=== PATIENT | male | born 1935 | race Caucasian/White ===

== ENCOUNTER 2017-05-01 10:58 | Emergency (ER) | payer OTHER, MEDICARE ==
--- NOTE | 2017-05-01 14:24 | EDPHY ---
H & P Stated Complaint: Fell 1 week ago on right side - pain and bruising to R hip, leg and ankle. HPI/ROS: Chief complaint: Right leg pain History of present illness: This is an 81-year-old male who presents to the emergency department for right leg pain. Patient reports one week ago he was stepping through a doorway when he stepped on the elevated door stoop, lost his balance and fell down striking his right leg against the ground. He reports pain in the right hip, right knee and right ankle. It remains persistently sore. It makes it difficult to ambulate but he still able to ambulate. He denies open wounds. He denies abnormal coolness or paresthesias in the leg. No report of trauma to other parts of the body. - Personal History Current Tetanus Diphtheria and Acellular Pertussis (TDAP): Yes Tetanus Vaccine Date: 2007 - Medical/Surgical History Hx Asthma: No Hx Chronic Respiratory Disease: No Hx Diabetes: No Hx Cardiac Disease: Yes Hx Renal Disease: No Hx Cirrhosis: No Hx Alcoholism: No Hx HIV/AIDS: No Hx Splenectomy or Spleen Trauma: No Other PMH: PMH: CT WITH STENTS,HYPERLIPIDEMIA,THYMOMA. PSH: BACK SURG x 2, GB - Social History Smoking Status: Never smoked - Physical Exam Exam: General Appearance: Alert, nontoxic Eyes: PERRLA Respiratory: Lungs clear to auscultation bilaterally Cardiac: Regular rate and rhythm. DP and PT pulses 2+. Capillary refill brisk in all toes of each foot. Gastrointestinal: Soft, nondistended, nontender. Neurological: Alert and oriented. Strength and sensation intact and symmetrical. Sensation intact throughout the right leg. Skin: No lesions consistent with trauma to the right leg. Musculoskeletal: Patient ambulating well on his own. Mild discomfort to palpation of the lateral aspect of the right hip, mild discomfort to the lateral aspect of the right knee and mild discomfort diffusely to the right ankle. Still he is moving these regions well. Constitutional: Initial Vital Signs Temperature (C) 36.4 C 05/01/17 10:59 Heart Rate 64 05/01/17 10:59 Respiratory Rate 16 05/01/17 10:59 Blood Pressure 164/84 H 05/01/17 10:59 O2 Sat (%) 96 05/01/17 10:59 O2 Delivery Mode Room Air Allergies/Adverse Reactions: levofloxacin [From Levaquin] Allergy (Severe, Verified 11/05/14 17:47) tendonitis hydrocodone Allergy (Mild, Verified 11/05/14 17:47) ANXIETY,CONFUSION oxycodone [Oxycodone] Allergy (Mild, Verified 11/05/14 17:47) ANXIETY,CONFUSION ketorolac tromethamine [From Toradol] Allergy (Unknown, Verified 11/05/14 17:47) Hives triazolam [From Halcion] Allergy (Unknown, Verified 11/05/14 17:47) Hives Home Medications: Medication Instructions Recorded Atorvastatin Calcium [Lipitor 80 80 mg PO HS 11/05/14 mg] Clopidogrel Bisulfate [Plavix (*)] 75 mg PO HS 11/05/14 Finasteride [Proscar 5 MG (*)] 5 mg PO DAILY 11/05/14 HYDROmorphone HCL [Dilaudid] 2 mg PO Q4 PRN #30 tab 11/11/14 Ondansetron Odt [Zofran Odt] 4 mg PO Q4PRN PRN #20 tab 11/12/14 Medical Decision Making - Diagnostics Imaging: Discussed imaging studies w/ outbound call center representative Radiologist, I viewed and interpreted images myself ED Course/Re-evaluation: Patient seen under the supervision of my secondary supervising physician Dr. Winnie Martinez. Patient presents to the emergency department a week after falling and injuring his right leg. The leg is neurovascularly intact. He is nontoxic. X-rays of the hip, knee and ankle where he is hurting are negative. Given persistent pain in the right hip a CT scan is pursued to ensure no fracture and is negative. Patient will be discharged home. Home care is discussed. He is referred to Orthopedics for recheck. Return precautions are given. Patient voiced understanding and agreement with plan. Differential Diagnosis: Included but not limited to contusion, sprain or strain, bony fracture Departure - Departure Disposition: Home, Routine, Self-Care Clinical Impression: Contusion Qualifiers: Encounter type: initial encounter Contusion area: hip Laterality: right Qualified Code(s): S70.01XA - Contusion of right hip, initial encounter Condition: Good Instructions: Contusion in Adults (ED) Additional Instructions: Follow-up with orthopedics for continued evaluation and care If symptoms worsen or new symptoms develop return to the emergency room for recheck Referrals: Alex Echols MD [Primary Care Provider] - As per Instructions Laura Menard MD [Medical Doctor] - As per Instructions
[2017-05-01 14:36] VITALS: BP 167/95; PULSE 68; RESP 18; TEMP 99; O2SAT 94
== END 2017-05-01 14:37 | disposition home or self-care (01) ==
DX: S70.01XA Contusion of right hip, initial encounter (principal); I25.2 Old myocardial infarction; Z95.5 Presence of coronary angioplasty implant and graft; W01.198A Fall on same level from slipping, tripping and stumbling with subsequent striking against other object, initial encounter

== ENCOUNTER → 2017-05-07 | Outpatient (CLI) | payer OTHER, MEDICARE | LOC: FIMAGING 08:17 | DX: M46.96 Unspecified inflammatory spondylopathy, lumbar region (principal); M48.062 Spinal stenosis, lumbar region with neurogenic claudication; M51.26 Other intervertebral disc displacement, lumbar region; M51.37 Other intervertebral disc degeneration, lumbosacral region ==

== ENCOUNTER → 2018-03-02 | Outpatient (CLI) | payer OTHER, MEDICARE | LOC: BHFA 14:45 | PROVIDERS: ATTEND Nurse Practitioner Adult Health | DX: I71.9 Aortic aneurysm of unspecified site, without rupture (principal); I25.10 Atherosclerotic heart disease of native coronary artery without angina pectoris; R07.2 Precordial pain ==

== ENCOUNTER → 2018-03-06 | Outpatient (CLI) | payer OTHER, MEDICARE | LOC: BHFA 09:30 | PROVIDERS: ATTEND Internal Medicine Cardiovascular Disease | DX: R07.9 Chest pain, unspecified (principal); I25.10 Atherosclerotic heart disease of native coronary artery without angina pectoris | CPT/HCPCS: 78452; 93017; A9500; J2785 ==

== ENCOUNTER → 2018-04-02 | Outpatient (CLI) | payer OTHER, MEDICARE | LOC: BHFA 09:15 | PROVIDERS: ATTEND Internal Medicine Interventional Cardiology | DX: R07.9 Chest pain, unspecified (principal); I25.10 Atherosclerotic heart disease of native coronary artery without angina pectoris; I71.9 Aortic aneurysm of unspecified site, without rupture ==

== ENCOUNTER → 2018-04-09 | Outpatient (CLI) | payer OTHER, MEDICARE | LOC: FIMAGING 16:55 | PROVIDERS: ATTEND Internal Medicine | DX: R05 Cough (principal); J98.01 Acute bronchospasm ==

== ENCOUNTER 2018-08-08 22:49 | Emergency (ER) | payer OTHER, MEDICARE ==
[2018-08-08] MEDS ORDERED: TRANEXAMIC ACID 1,000 MG/10 ML VIAL TP ONE (23:28)
--- NOTE | 2018-08-08 23:28 | EDPHY ---
H & P Stated Complaint: epistaxis on blood thinner Time Seen by Provider: 08/08/18 23:20 HPI/ROS: HPI: This is an 83-year-old male who presents with Chief Complaint: Epistaxis on blood thinners Location: Left nostril Quality: Bleeding Duration: 1-2 hours Signs and Symptoms: no fever, no nausea, no vomiting, no photophobia, no noise sensitivity, no neck stiffness, no ear pain, no tinnitus, no nasal congestion, no sinus pressure, no weakness, no radiation, no aura, no bruising Timing: Acute Severity: [id number] Context: Patient has a history of TN on Plavix presents with sudden onset while sitting on the toilet getting ready for bed approximately 1-2 hours prior to arrival of left-sided nose bleeding. Patient was seen today at the ENT office and had silver nitrate cauterization performed by Dr. Fuentes. Patient denies dizziness, shortness of breath, chest pain. He applied direct pressure with slowing of the bleeding. Took Plavix this evening already. Modifying Factors: Direct pressure Comment: ROS: A comprehensive 10 system review of systems is otherwise negative aside from elements mentioned in the history of present illness. MEDICAL/SURGICAL/SOCIAL HISTORY: PMH: TN WITH STENTS,HYPERLIPIDEMIA,THYMOMA PSH: BACK SURG x 2, gallbladder removed due to cancer Social history: Never smoked. Family history noncontributory. CONSTITUTIONAL: Well-developed, well-nourished, adult white male, at bedside, awake and alert, no obvious distress HEENT: Atraumatic and normocephalic, PERRL, EOMI. Nares patent; left nostril shows scant active bleeding in the anterior aspect at the 6 o'clock position; unable to see behind middle turbinate. No septal hematoma. Tympanic membranes clear. Oropharynx clear, no exudate and moist pink mucosa. Airway patent. No lymphadenopathy. No meningismus. Cardiovascular: Normal S1/S2, regular rate, regular rhythm, without murmur rub or gallop. PULMONARY/CHEST: Symmetrical and nontender. Clear to auscultation bilaterally. Good air movement. No accessory muscle usage. ABDOMEN: Soft, nondistended, nontender, no rebound, no guarding, no peritoneal signs, no masses or organomegaly. No CVAT. EXTREMITIES: 2/2 pulses, strength 5/5, no deformities, no clubbing, no cyanosis or edema. NEUROLOGICAL: no focal neuro deficits. GCS 15. SKIN: Warm and dry, no erythema. no rash. Good capillary refill. Source: Patient, Family Exam Limitations: No limitations - Personal History Current Tetanus/Diphtheria Vaccine: No Current Tetanus Diphtheria and Acellular Pertussis (TDAP): No Tetanus Vaccine Date: 2007 - Medical/Surgical History Hx Asthma: No Hx Chronic Respiratory Disease: No Hx Diabetes: No Hx Cardiac Disease: Yes Hx Renal Disease: No Hx Cirrhosis: No Hx Alcoholism: No Hx HIV/AIDS: No Hx Splenectomy or Spleen Trauma: No Other PMH: PMH: TN WITH STENTS,HYPERLIPIDEMIA,THYMOMA. PSH: BACK SURG x 2, gallbladder removed due to cancer - Social History Smoking Status: Never smoked Constitutional: Initial Vital Signs Temperature (C) 36.8 C 08/08/18 22:55 Heart Rate 74 08/08/18 22:55 Respiratory Rate 16 08/08/18 22:55 Blood Pressure 145/82 H 08/08/18 22:55 O2 Sat (%) 92 08/08/18 22:55 O2 Delivery Mode Room Air Allergies/Adverse Reactions: levofloxacin [From Levaquin] Allergy (Severe, Verified 08/08/18 23:00) tendonitis hydrocodone Allergy (Mild, Verified 08/08/18 23:00) ANXIETY,CONFUSION oxycodone [Oxycodone] Allergy (Mild, Verified 08/08/18 23:00) ANXIETY,CONFUSION ketorolac tromethamine [From Toradol] Allergy (Unknown, Verified 08/08/18 23:00) Hives triazolam [From Halcion] Allergy (Unknown, Verified 08/08/18 23:00) Hives Home Medications: Medication Instructions Recorded Atorvastatin Calcium [Lipitor 80 80 mg PO HS 11/05/14 mg] Clopidogrel Bisulfate [Plavix (*)] 75 mg PO HS 11/05/14 Finasteride [Proscar 5 MG (*)] 5 mg PO DAILY 11/05/14 Lexapro 08/08/18 Medical Decision Making Procedures: Procedure: Epistaxis control. After verbal consent was obtained, the patient was not anesthetized. The anterior epistaxis was identified in the left nostril. The patient was treated with TXA soaked Rhino rocket with balloon filled to 4 mL. Following the procedure the patient was re-examined and the bleeding was well controlled. The patient tolerated the procedure well. The procedure was performed by myself. ED Course/Re-evaluation: Vital signs reviewed and show stable blood pressure. Left-sided epistaxis is scant bleeding in the anterior aspect; unable to see behind the middle turbinate. Rhino rocket soaked in TXA placed with balloon filled to 4 mL. Patient is to follow up with ENT tomorrow. This patient was seen under the supervision of my secondary supervising physician. I evaluated care for this patient independently. Discussed this patient with Dr. Guerra. Differential Diagnosis: Differential diagnosis includes but is not limited to coagulopathy, anterior epistaxis, posterior epistaxis. Departure - Departure Disposition: Home, Routine, Self-Care Clinical Impression: Left-sided epistaxis Condition: Good Instructions: Nosebleed (ED) Additional Instructions: Please keep rhino rocket in place until you see Dr. Fuentes tomorrow. Referrals: Alex Echols MD [Primary Care Provider] - As per Instructions Perez Fuentes MD [Medical Doctor] - 1 day without fail
[2018-08-09 00:06] VITALS: BP 155/100
== END 2018-08-09 00:06 | disposition home or self-care (01) ==
PROC: 2Y41X5Z Packing of Nasal Region using Packing Material (ICD-10-PCS; principal; 2018-08-08)
DX: R04.0 Epistaxis (principal); Z79.01 Long term (current) use of anticoagulants